=== PATIENT | male | born 1955 | race Caucasian/White ===

== ENCOUNTER 2020-08-20 09:41 | Emergency (ER) | payer OTHER ==
[2020-08-20 10:11] LABS: HEMOGLOBIN 9.4 gm/dl (14.0-17.5); RED BLOOD COUNT 3.96 M/UL (4.20-5.50); WHITE BLOOD COUNT 8.7 K/UL (4.5-11.0)
[2020-08-20 10:34] LABS: BUN/CREATININE RATIO 22 (0-10)
== END 2020-08-20 17:11 | disposition short-term general hospital (02) ==
LOC: ER1 09:41
PROVIDERS: Physician Assistant
DX: C18.9 Malignant neoplasm of colon, unspecified (principal); G93.6 Cerebral edema; G93.89 Other specified disorders of brain; Z20.822 Contact with and (suspected) exposure to COVID-19
CPT/HCPCS: 0240U; 70450; 71045; 80053; 81001; 82550; 82553; 83605; 83690; 83874; 84439; 84443; 84484; 85025; 87040; 87086; 93005; 96374; 99285; J1100; J7030

== ENCOUNTER 2020-09-12 09:58 | Inpatient (IN) | payer OTHER ==
[~2020-09-12] VITALS: Ht 180.3 cm; Wt 104.1 kg
[2020-09-12 11:46] LABS: HEMOGLOBIN 8.6 gm/dl (14.0-17.5); RED BLOOD COUNT 3.36 M/UL (4.20-5.50); WHITE BLOOD COUNT 6.7 K/UL (4.5-11.0)
[2020-09-12 12:10] LABS: BUN/CREATININE RATIO 22 (0-10)
[2020-09-12] MEDS ORDERED: EUTHYROX100 MCG PO (22:14)
[2020-09-12] MEDS ORDERED: FEROSUL325 MG PO (22:15)
[2020-09-12] MEDS ORDERED: ABILIFY15 MG PO (22:16)
[2020-09-12] MEDS ORDERED: BUSPAR 10MG10 MG PO (22:16)
[2020-09-12] MEDS ORDERED: ONDANSETRON HCL8 MG PO (22:17)
--- NOTE | 2020-09-12 23:23 | NUR ---
UPON ASSESSMENT, PT'S STATED THAT HE HAD NOT URINATED SINCE "AROUND 1 OR 2 O'CLOCK." PT WAS TOLD THAT HE NEEDED TO "PEE" OR THAT PRIMARY RN WAS GOING TO NEED TO BLADDER SCAN HIM. AT 2315, PT STILL HAD NOT URINATED, THEREFORE PRIMARY RN BLADDER SCANNED PT. PT WAS DISCOVERED TO ONLY HAVE 200 ML OF URINE IN BLADDER AT 2320. TM
[2020-09-13 07:33] LABS: HEMOGLOBIN 7.2 gm/dl (14.0-17.5); RED BLOOD COUNT 2.72 M/UL (4.20-5.50); WHITE BLOOD COUNT 5.3 K/UL (4.5-11.0)
[2020-09-13 07:58] LABS: BUN/CREATININE RATIO 22 (0-10)
--- NOTE | 2020-09-13 17:46 | NUR ---
STRAIGHT CATHED PATIENT PER MD ORDER. 800 ML CLEAR, YELLOW, URINE NOTED TO COLLECTION BAG.
[2020-09-14 03:42] LABS: RED BLOOD COUNT 2.57 M/UL (4.20-5.50); WHITE BLOOD COUNT 5.3 K/UL (4.5-11.0)
[2020-09-14 04:03] LABS: BUN/CREATININE RATIO 15 (0-10)
[2020-09-14 04:28] LABS: HEMOGLOBIN 6.5 gm/dl (14.0-17.5)
[2020-09-14 09:50] LABS: ACINETOBACTER BAUMANNII Not Detected (Negative); CANDIDA ALBICANS Not Detected (Negative); CANDIDA KRUSEI Not Detected (Negative); CANDIDA TROPICALIS Not Detected (Negative); ENTEROCOCCUS Not Detected (Negative); ESCHERICHIA COLI Not Detected (Negative); HAEMOPHILUS INFLUENZAE Not Detected (Negative); KLEBSIELLA OXYTOCA Not Detected (Negative); KLEBSIELLA PNEUMONIAE Not Detected (Negative); KPC-CARBAPENEM-RESISTANCE GENE Not Detected (Negative); PROTEUS Not Detected (Negative); PSEUDOMONAS AERUGINOSA Not Detected (Negative); SERRATIA MARCESANS Not Detected (Negative); STAPHYLOCOCCUS AUREUS Not Detected (Negative); STREP AGALACTIAE (GROUP B) Not Detected (Negative); STREP PYOGENES (GROUP A) Not Detected (Negative); STREPTOCOCCUS Not Detected (Negative); vanA/B (VANCOMYCIN RESIST GENE Not Detected (Negative)
[2020-09-14 11:09] LABS: STAPHYLOCOCCUS DETECTED (Negative); mecA (METHICILLIN RESIST GENE DETECTED (Negative)
[2020-09-14 20:57] LABS: HEMOGLOBIN 8.7 gm/dl (14.0-17.5)
[2020-09-15 15:54] LABS: BUN/CREATININE RATIO 16 (0-10)
[2020-09-16 05:01] LABS: HEMOGLOBIN 8.4 gm/dl (14.0-17.5)
[2020-09-16 05:16] LABS: RED BLOOD COUNT 3.21 M/UL (4.20-5.50)
[2020-09-16 05:21] LABS: BUN/CREATININE RATIO 15 (0-10)
--- NOTE | 2020-09-16 16:38 | NUR ---
PULSE OX ROOM AIR 92%
[2020-09-17 07:13] LABS: HEMOGLOBIN 8.3 gm/dl (14.0-17.5); RED BLOOD COUNT 3.11 M/UL (4.20-5.50)
[2020-09-17 07:33] LABS: BUN/CREATININE RATIO 14 (0-10)
[2020-09-18 06:48] LABS: HEMOGLOBIN 8.2 gm/dl (14.0-17.5); RED BLOOD COUNT 3.14 M/UL (4.20-5.50)
[2020-09-18 06:53] LABS: WHITE BLOOD COUNT 6.5 K/UL (4.5-11.0)
[2020-09-18 07:24] LABS: BUN/CREATININE RATIO 14 (0-10)
[2020-09-18] MEDS ORDERED: FLOMAX 0.4 MG0.4 MG PO (12:11)
[2020-09-18] MEDS ORDERED: FERROUS SULFAT325 M2 PO (12:11)
[2020-09-18] MEDS ORDERED: AUGMENTIN 875-1 EACH PO (12:11)
--- NOTE | 2020-09-18 16:04 | NUR ---
report given to admitting nurse at [facility]
== END 2020-09-18 18:14 | disposition home health service (06) | DRG 689 ==
LOC: ER1 09:58 → CDU 17:17 → M/S 17:17
PROVIDERS: Emergency Medicine; Internal Medicine; ADMIT Internal Medicine
DX: N39.0 Urinary tract infection, site not specified (principal); G93.41 Metabolic encephalopathy; J69.0 Pneumonitis due to inhalation of food and vomit; J96.01 Acute respiratory failure with hypoxia; C79.31 Secondary malignant neoplasm of brain; E44.0 Moderate protein-calorie malnutrition; C78.5 Secondary malignant neoplasm of large intestine and rectum; C79.51 Secondary malignant neoplasm of bone; B95.2 Enterococcus as the cause of diseases classified elsewhere; E03.9 Hypothyroidism, unspecified; D50.9 Iron deficiency anemia, unspecified; F31.9 Bipolar disorder, unspecified; N40.0 Benign prostatic hyperplasia without lower urinary tract symptoms; Z93.3 Colostomy status; Z79.899 Other long term (current) drug therapy; E88.09 Other disorders of plasma-protein metabolism, not elsewhere classified; G89.29 Other chronic pain
CPT/HCPCS: 36415; 36430; 70450; 71045; 80048; 80053; 80202; 81001; 82140; 82550; 82553; 82728; 83540; 83550; 83605; 83735; 84439; 84443; 84484; 85014; 85018; 85025; 85027; 86850; 86900; 86901; 86920; 87040; 87077; 87081; 87086; 87150; 87186; 87880; 92610; 93005; 97110-GP-CQ; 97162; 97530; 97530-GP-CQ; 99285; J0290; J0696; J1956; J2060; J3370; J7030; J7070; P9016; U0002

== ENCOUNTER 2020-10-05 10:44 | Emergency (ER) | payer OTHER ==
[~2020-10-05] VITALS: Ht 180.3 cm; Wt 90.7 kg
[~2020-10-05 10:44] MED LIST: ABILIFY15 MG PO; AUGMENTIN 875-1 EACH PO; BUSPAR 10MG10 MG PO; EUTHYROX100 MCG PO; FEROSUL325 MG PO; FERROUS SULFAT325 M2 PO; FLOMAX 0.4 MG0.4 MG PO; ONDANSETRON HCL8 MG PO
[2020-10-05 11:38] LABS: HEMOGLOBIN 8.2 gm/dl (14.0-17.5); RED BLOOD COUNT 3.45 M/UL (4.20-5.50)
[2020-10-05 12:08] LABS: BUN/CREATININE RATIO 15 (0-10)
== END 2020-10-06 03:40 | disposition critical access hospital (66) ==
LOC: ER1 10:44
PROVIDERS: Emergency Medicine
DX: R09.02 Hypoxemia (principal); E03.9 Hypothyroidism, unspecified; D72.829 Elevated white blood cell count, unspecified; R74.8 Abnormal levels of other serum enzymes; I26.99 Other pulmonary embolism without acute cor pulmonale; C79.9 Secondary malignant neoplasm of unspecified site; D64.9 Anemia, unspecified; Z20.822 Contact with and (suspected) exposure to COVID-19
CPT/HCPCS: 70450; 71045; 80053; 81001; 82550; 82553; 83605; 83690; 84439; 84443; 84484; 85025; 87040; 93005; 94760; 96372; 96374; 96375; 96376; 99285; J1650; J2543; J3370; J7070; Q9967; U0002